=== PATIENT | female | born 1955 | race Caucasian/White ===

== ENCOUNTER → 2024-09-08 14:27 | Outpatient (BNVA) | payer OTHER, MEDICAID, SELFPAY | PROVIDERS: Visit Provider Family Medicine | DX: M25.762 Osteophyte, left knee (principal) | CPT/HCPCS: 73562 ==

== ENCOUNTER 2024-09-09 05:00 | Outpatient (RCR) | payer OTHER, MEDICAID, SELFPAY | END 2024-10-09 23:59 | disposition home or self-care (01) | LOC: MPT 05:00 | PROVIDERS: PCP Family Medicine; Visit Provider Family Medicine | DX: M23.312 Other meniscus derangements, anterior horn of medial meniscus, left knee (principal) | CPT/HCPCS: 97110; 97162 ==

== ENCOUNTER 2024-09-22 15:03 | Outpatient (CLI) | payer OTHER, MEDICAID, SELFPAY ==
--- NOTE | 2024-09-22 15:15 | MR_ITS ---
WS: [id number] MRI LEFT KNEE HISTORY: suspect medial meniscus tear; L knee pain, effusion COMPARISON: Radiograph 09/08/2024 Anterior cruciate ligament: Intact. Posterior cruciate ligament: Intact. Medial collateral ligament: Partial tear with surrounding fluid involving the medial collateral ligament below the knee joint. Posterior lateral corner structures: Intact. Medial menisci: Seen best on the coronal T2 sequence is increased T2 signal in the far lateral meniscus curving around the tibial plateau. This is also the site of marrow edema in the MCL tear. Lateral meniscus: Focal tear posterior horn lateral meniscus at the meniscal root. Extensor mechanism: Distal quadriceps tendon and patellar tendons are intact. Fluid and soft tissue: Small suprapatellar joint effusion. Trace fluid is extending into the posterior intercondylar notch. No Coffman's cyst. Osseous and articular structures: Patellofemoral compartment: Mild narrowing patellofemoral joint. Chondromalacia involving the medial and lateral facets. Slightly greater chondromalacia along the medial patellar facet with underlying. Medial compartment: Mild narrowing the medial compartment. Mild chondromalacia. There is small amount of edema in the tibial plateau adjacent to the MCL. Lateral compartment: Moderate narrowing of the knee joint. Chondromalacia in the femoral condyle and tibial plateau. Subchondral cyst and osteochondral lesion along the tibial plateau. There are 2 separate osteochondral lesions, with one measures 5 mm and the other more centrally located measures 4 mm. Additional subtle marrow edema involving the posterior medial femoral condyle at the site of the semimembranosus tendon insertion. MR/MR knee LT wo con* [id number] IMPRESSION: 1. No ACL tear. 2. Partial tear of the MCL just below the knee joint. 3. Meniscal tear in the medial posterior meniscus. This tear is best seen on t he coronal T2 imaging as it curves around the peripheral meniscus. There is als o associated marrow edema in the tibial plateau and this is the site of the MCL tear. Meniscocapsular injury likely. 4. Tear involving the posterior horn lateral meniscus towards the meniscal tuan t. 5. Moderate narrowing of the lateral compartment with chondromalacia. There ar e 2 osteochondral lesions along the tibial plateau. 6. Mild narrowing medial compartment with chondromalacia and a small amount of edema along the tibial plateau. 7. Mild patellofemoral compartment narrowing with chondromalacia. 8. Small joint effusion. 9. Semimembranosus tendon strain. Edema at the insertion to the posterior medi al femoral condyle.
== END 2024-09-22 15:04 | disposition home or self-care (01) ==
LOC: RAD 15:07
PROVIDERS: PCP Family Medicine; Visit Provider Family Medicine
DX: S83.222A Peripheral tear of medial meniscus, current injury, left knee, initial encounter (principal); S83.412A Sprain of medial collateral ligament of left knee, initial encounter; Y99.9 Unspecified external cause status; M25.462 Effusion, left knee; M94.262 Chondromalacia, left knee; M25.9 Joint disorder, unspecified
CPT/HCPCS: 73721

== ENCOUNTER → 2024-09-29 13:25 | Outpatient (BNVA) | payer OTHER, MEDICAID, SELFPAY | PROVIDERS: PCP Family Medicine; Visit Provider Orthopaedic Surgery | DX: M23.92 Unspecified internal derangement of left knee (principal); M94.262 Chondromalacia, left knee | CPT/HCPCS: 99204 ==

== ENCOUNTER 2024-10-10 05:00 | Outpatient (RCR) | payer OTHER, MEDICAID, SELFPAY | END 2024-11-08 23:59 | disposition home or self-care (01) | LOC: MPT 05:00 | PROVIDERS: PCP Family Medicine; Visit Provider Family Medicine | DX: M23.312 Other meniscus derangements, anterior horn of medial meniscus, left knee (principal) | CPT/HCPCS: 97110; G0283 ==

== ENCOUNTER → 2024-10-24 08:03 | Outpatient (BNVA) | payer OTHER, MEDICAID, SELFPAY | PROVIDERS: PCP Family Medicine; Visit Provider Orthopaedic Surgery | DX: M23.92 Unspecified internal derangement of left knee (principal) | CPT/HCPCS: 99213 ==

== ENCOUNTER 2024-12-07 10:51 | Outpatient (RCR) | payer OTHER, MEDICAID, SELFPAY | END 2024-12-09 23:59 | disposition home or self-care (01) | LOC: MPT 10:51 | PROVIDERS: PCP Family Medicine; Visit Provider Family Medicine | DX: M23.92 Unspecified internal derangement of left knee (principal) | CPT/HCPCS: 97110; G0283 ==

== ENCOUNTER 2024-12-29 13:29 | Outpatient (RCR) | payer OTHER, MEDICAID, SELFPAY | END 2025-01-02 08:24 | disposition home or self-care (01) | LOC: MPT 13:29 | PROVIDERS: PCP Family Medicine; Visit Provider Family Medicine | DX: M23.92 Unspecified internal derangement of left knee (principal) | CPT/HCPCS: 97110 ==